=== PATIENT | female | born 1985 | race Caucasian/White ===

== ENCOUNTER 2024-08-03 10:14 | Outpatient (CLI) | payer BC, SELFPAY ==
--- NOTE | 2024-08-03 11:29 | W.ANESCHARGE ---
Anesthesia Charges Start Date/Time Anesthesia Start Date: 08/03/24 Anesthesia Start Time: 11:30 Stop Date/Time Anesthesia Stop Date: 08/03/24 Anesthesia Stop Time: 11:47
--- NOTE | 2024-08-03 11:54 | W.ANESCHARGE ---
Anesthesia Charges Start Date/Time Anesthesia Start Date: 08/03/24 Anesthesia Start Time: 11:30 Stop Date/Time Anesthesia Stop Date: 08/03/24 Anesthesia Stop Time: 11:47
== END 2024-08-03 10:15 | disposition home or self-care (01) ==
LOC: OP CLINIC 10:16
PROVIDERS: PCP Family Medicine; Visit Provider Internal Medicine Gastroenterology
DX: R10.13 Epigastric pain (principal); K22.89 Other specified disease of esophagus; R11.0 Nausea
CPT/HCPCS: 00731; 43239; 88305; J2704; J3490

== ENCOUNTER 2025-02-06 16:45 | Outpatient (RCR) | payer BC, SELFPAY | END 2025-03-18 09:43 | disposition home or self-care (01) | PROVIDERS: PCP Family Medicine; Visit Provider Student in an Organized Health Care Education/Training Program | DX: M54.42 Lumbago with sciatica, left side (principal); M54.41 Lumbago with sciatica, right side; G89.29 Other chronic pain; Z51.89 Encounter for other specified aftercare | CPT/HCPCS: 97110; 97140; 97161 ==